=== PATIENT | male | born 1975 | race African-American/Black ===

== ENCOUNTER 2021-05-11 10:30 | Emergency (ER) | payer MEDICAID ==
[~2021-05-11] VITALS: Ht 167.6 cm; Wt 88.0 kg
[2021-05-11] MEDS ORDERED: KETOROLAC 30MG/ML VIAL IM ONE (13:30)
[2021-05-11] MEDS ORDERED: FLUORESCEIN SODIUM 1MG/STRIP LEFTEYE ONE (13:45)
[2021-05-11] MEDS ORDERED: TETRACAINE 0.5% OPHTH DROPS 4ML LEFTEYE ONE (13:45)
[2021-05-11] MEDS ORDERED: IBUP-2029 MT (15:19)
[2021-05-11 15:42] VITALS: BP 131/98
== END 2021-05-11 15:43 | disposition home or self-care (01) ==
LOC: ER 10:30
DX: G44.009 Cluster headache syndrome, unspecified, not intractable (principal)
CPT/HCPCS: 82962; 96372; 99283; J1885